=== PATIENT | female | born 1965 | race Caucasian/White ===

== ENCOUNTER → 2019-04-22 17:03 | Outpatient (BNVA) | payer BC, SELFPAY | PROVIDERS: Family Provider Nurse Practitioner; Visit Provider Nurse Practitioner | DX: Z78.9 Other specified health status (principal); F41.9 Anxiety disorder, unspecified; Z12.39 Encounter for other screening for malignant neoplasm of breast | CPT/HCPCS: 80053; 80061; 81003; 84443; 85025 ==

== ENCOUNTER → 2019-10-01 14:41 | Outpatient (BNVA) | payer BC, SELFPAY | PROVIDERS: Family Provider Nurse Practitioner; Visit Provider Nurse Practitioner | DX: E03.8 Other specified hypothyroidism (principal) | CPT/HCPCS: 84443 ==

== ENCOUNTER → 2020-03-03 15:48 | Outpatient (BNVA) | payer BC, SELFPAY | PROVIDERS: Family Provider Nurse Practitioner; Visit Provider Nurse Practitioner | DX: E03.8 Other specified hypothyroidism (principal); N95.0 Postmenopausal bleeding; E78.5 Hyperlipidemia, unspecified | CPT/HCPCS: 80053; 84443; 85025 ==

== ENCOUNTER → 2020-03-08 13:24 | Outpatient (BNVA) | payer BC, SELFPAY | PROVIDERS: Family Provider Nurse Practitioner; Visit Provider Nurse Practitioner | DX: R30.0 Dysuria (principal); N39.0 Urinary tract infection, site not specified | CPT/HCPCS: 81000; 87086 ==

== ENCOUNTER 2020-03-19 13:06 | Outpatient (CLI) | payer BC, SELFPAY ==
--- NOTE | 2020-03-19 12:45 | US_ITS ---
WS: [id number] ULTRASOUND PELVIS TECHNIQUE: Transabdominal and transvaginal. ULTRASOUND PELVIS TECHNIQUE: Transabdominal. CLINICAL INFORMATION: N95.0 - Postmenopausal bleeding LMP: : No. COMPARISON: None. FINDINGS: Uterus Orientation: Anteverted. Size: 6.9 cm x 4.1 cm x 3.4 cm. Masses: None. Cervix: cm. Endometrium: Normal. Endometrium thickness: 0.8 cm. Adnexa: Left ovarian cyst measuring 2.4 x 1.4 x 2.0 cm. Right ovary size: Right ovary not visualized . Left ovary size: 3.4 cm x 2.0 cm x 2.2 cm. Left ovary volume: 7.8 ccm3 Free fluid: None. Other findings: None. US/US pelvic with transvaginal IMPRESSION: 1. Normal uterus and endometrium. Endometrium measures 7.7 mm. 2. Right ovary not visualized. 3. Simple appearing Left ovarian cyst measuring 2.4 x 1.4 x 2.0 cm
== END 2020-03-19 13:07 | disposition home or self-care (01) ==
LOC: US 13:07
PROVIDERS: PCP Nurse Practitioner; Visit Provider Nurse Practitioner
DX: N95.0 Postmenopausal bleeding (principal); N83.202 Unspecified ovarian cyst, left side
CPT/HCPCS: 76830; 76856

== ENCOUNTER → 2020-07-23 15:38 | Outpatient (BNVA) | payer BC, SELFPAY | PROVIDERS: PCP Nurse Practitioner; Visit Provider Nurse Practitioner | DX: E03.8 Other specified hypothyroidism (principal); E78.5 Hyperlipidemia, unspecified; Z12.39 Encounter for other screening for malignant neoplasm of breast; Z79.899 Other long term (current) drug therapy | CPT/HCPCS: 80053; 81000; 84439; 84443; 84481; 85025 ==

== ENCOUNTER 2020-07-29 13:03 | Outpatient (CLI) | payer BC, SELFPAY ==
--- NOTE | 2020-07-29 13:30 | MM_ITS ---
WS: [id number] Bilateral screening digital mammogram, 07/29/2020 Clinical Data: Z12.39 - Encounter for other screening for malignant neop... Comparison: 09/24/2018, 08/16/2017, 05/08/2015, 04/20/2015, 03/07/2014. Findings: The breast parenchymal pattern shows heterogeneous density No spiculated masses or clustered calcific ations are seen. There are no secondary signs of carcinoma. MM/[id number] Impression: 1. Negative bilateral mammogram unchanged. 2. Recommend annual screening mammograms. BIRADS: 1-Negative FOLLOW UP: 1 Year Follow-up The CAD store clerk checker was used.
== END 2020-07-29 13:04 | disposition home or self-care (01) ==
LOC: RADSHAW 13:08
PROVIDERS: PCP Nurse Practitioner; Visit Provider Nurse Practitioner
DX: Z12.31 Encounter for screening mammogram for malignant neoplasm of breast (principal)
CPT/HCPCS: 77067

== ENCOUNTER → 2021-05-10 15:50 | Outpatient (BNVA) | payer BC, SELFPAY | PROVIDERS: PCP Nurse Practitioner; Visit Provider Nurse Practitioner | DX: E03.8 Other specified hypothyroidism (principal); E78.5 Hyperlipidemia, unspecified | CPT/HCPCS: 80053; 80061; 84443; 85025 ==

== ENCOUNTER 2021-09-06 11:30 | Outpatient (CLI) | payer BC, SELFPAY ==
--- NOTE | 2021-09-06 11:39 | MM_ITS ---
WS: [id number] BILATERAL 3D TOMOSYNTHESIS DIGITAL SCREENING MAMMOGRAPHY WITH CAD CLINICAL INFORMATION: Z12.39 - Encounter for other screening for malignant neop... HISTORY: Screening mammogram. No current complaints. COMPARISON: July 29, 2020 TECHNIQUE: Bilateral CC and MLO views. FINDINGS: Scattered fibroglandular densities bilaterally. No suspicious focal mass, asymmetry, calcifications, or architectural distortion. No evidence of malignancy. MM/[place] [id number] IMPRESSION: BI-RADS: 1-Negative FOLLOW UP: 1 Year Follow-up Recommend return to annual screening mammography.
== END 2021-09-06 11:31 | disposition home or self-care (01) ==
LOC: RAD 11:30
PROVIDERS: PCP Nurse Practitioner; Visit Provider Nurse Practitioner
DX: Z12.31 Encounter for screening mammogram for malignant neoplasm of breast (principal)
CPT/HCPCS: 77063; 77067

== ENCOUNTER → 2022-04-11 16:03 | Outpatient (BNVA) | payer OTHER, SELFPAY | PROVIDERS: PCP Nurse Practitioner; Visit Provider Nurse Practitioner | DX: E03.8 Other specified hypothyroidism (principal); Z00.00 Encounter for general adult medical examination without abnormal findings | CPT/HCPCS: 80053; 80061; 84443; 85025 ==

== ENCOUNTER 2022-09-08 08:50 | Outpatient (CLI) | payer BC, SELFPAY ==
--- NOTE | 2022-09-08 09:04 | MM_ITS ---
WS: [id number] VIEWS: MLO and CC views both breasts. 3D digital tomosynthesis is also included in this exam. Comparison made with prior exam of 04/20/2015, 08/16/2017, 09/24/2018, 07/29/2020, and 09/06/2021. Findings: There was no sign of mass, architectural distortion or suspicious calcification in either breast. Th e breasts are heterogeneously dense which may obscure small masses MM/[id number] Impression: BI-RADS: 2-Benign finding. FOLLOW-UP: 1 Year Follow-up This mammogram was also analyzed by the Computer Aided Detection System [employer]2 [employer] Vascular Radiologist.
== END 2022-09-08 08:51 | disposition home or self-care (01) ==
LOC: RAD 09:01 → MOBLMAM 09:03
PROVIDERS: PCP Nurse Practitioner; Visit Provider Nurse Practitioner
DX: Z12.31 Encounter for screening mammogram for malignant neoplasm of breast (principal)
CPT/HCPCS: 77063; 77067

== ENCOUNTER → 2023-12-26 13:23 | Outpatient (BNVA) | payer BC, SELFPAY | PROVIDERS: PCP Nurse Practitioner; Visit Provider Nurse Practitioner | DX: Z12.4 Encounter for screening for malignant neoplasm of cervix (principal); E55.9 Vitamin D deficiency, unspecified; E78.5 Hyperlipidemia, unspecified; E03.8 Other specified hypothyroidism | CPT/HCPCS: 80053; 80061; 82306; 84443; 85025; 88175 ==

== ENCOUNTER → 2024-06-11 12:06 | Outpatient (BNVA) | payer OTHER, SELFPAY | PROVIDERS: PCP Nurse Practitioner; Visit Provider Nurse Practitioner | DX: E55.9 Vitamin D deficiency, unspecified (principal) | CPT/HCPCS: 80053; 80061; 82306 ==